=== PATIENT | male | born 1970 | race Caucasian/White ===

== ENCOUNTER 2021-06-19 09:23 | Outpatient (CLI) | payer BC ==
[~2021-06-19] VITALS: Ht 180.3 cm; Wt 155.5 kg
[2021-06-19] MEDS ORDERED: FURO-125 PO (12:55)
[2021-06-19] MEDS ORDERED: LISI20TA26 PO (12:55)
[2021-06-19] MEDS ORDERED: CLN.1T PO (12:55)
[2021-06-19] MEDS ORDERED: HYDR12.56 PO (12:57)
[2021-06-19] MEDS ORDERED: ZOLP5TAB PO (12:57)
== END 2021-06-19 16:01 | disposition home or self-care (01) ==
LOC: PREOP 09:23
PROVIDERS: ATTEND Surgery
DX: Z01.818 Encounter for other preprocedural examination (principal)

== ENCOUNTER 2021-06-25 08:10 | Day surgery (SDC) | payer BC ==
[~2021-06-25] VITALS: Ht 180.3 cm; Wt 155.5 kg
[2021-06-25] VITALS (12 sets, daily range): BP systolic 11–119; BP diastolic 49–73
[~2021-06-25 08:10] MED LIST: CLN.1T PO; FURO-125 PO; HYDR12.56 PO; LISI20TA26 PO; ZOLP5TAB PO
--- NOTE | 2021-06-25 08:33 | Progress Note-Pre Operative ---
Pre-Operative Progress Note H&P Reviewed The H&P was reviewed, patient examined and no changes noted. Date Seen by Provider: Jun 25, 2021 Time Seen by Provider: 08:30 Date H&P Reviewed: Jun 25, 2021 Time H&P Reviewed: 08:25 Pre-Operative Diagnosis: Symptomatic chronic calculous cholecystitis AGGIE MORA APRN Jun 25, 2021 08:33
[2021-06-25] MEDS ORDERED: HYDR-3817 PO (08:35)
--- NOTE | 2021-06-25 08:35 | Discharge Inst-Surgical ---
D/C Lap Instructions-KIDO Reconcile Patient Problems Problems Reviewed?: Yes New, Converted, or Re-Newed RX: RX on Chart Follow Up Appt in 2 weeks Activity as tolerated No driving for 24 hours No driving while on pain medications Incentive Spirometry use every 2 hours while awake Regular Diet Symptoms to Report: Fever over 101 degree F, Nausea/Vomiting Infection Signs and Symptoms to report: Increased redness, Foul odor of wound, Increased drainage Bathing instructions: May shower Operative Area Clean/Dry; Keep incision clean/dry If any problems/questions: Contact your physician or go to Emergency Room AGGIE MORA APRN Jun 25, 2021 08:35
[2021-06-25] MEDS ORDERED: ACETAMINOPHEN 325 MG TABLET PO PRN (08:45)
[2021-06-25] MEDS ORDERED: HYDROcodone/APAP 5 MG/325 MG (LORTAB) TAB PO ONE (08:45)
[2021-06-25] MEDS ORDERED: ONDANSETRON 4 MG/2 ML (SDV) Z0FRAN IVP PRN ×2 (08:45→13:15)
[2021-06-25] MEDS ORDERED: morphine INJ 10 MG/ML 1ML (SYR OR VIAL) IVP PRN (08:45)
[2021-06-25] MEDS ORDERED: CLINDAMYCIN 600 MG/50 ML IVPB 50 ML IV ONE (09:00)
[2021-06-25] MEDS ORDERED: CLINDAMYCIN 900 MG/50 ML IVPB 50 ML IV ONE (09:00)
[2021-06-25] MEDS: LACTATED RINGERS 1,000 ML IV PRN ×3 (09:02→12:39)
[2021-06-25] MEDS ORDERED: LIDOCAINE/EPI 1%-1:100,000 (XYLOCAINE) 20ML ONE (09:14)
[2021-06-25] MEDS ORDERED: MIDAZOLAM 2 MG/2 ML (VERSED) VIAL ONE (09:16)
[2021-06-25] MEDS ORDERED: ONDANSETRON 4 MG/2 ML (SDV) Z0FRAN ONE (09:16)
[2021-06-25] MEDS ORDERED: ROCURONIUM 10 MG/ML 5 ML SYRINGE IV ONE ×2 (09:16→11:47)
[2021-06-25] MEDS ORDERED: LIDOCAINE PF 2% 5 ML (XYLOCAINE) VIAL ONE (09:16)
[2021-06-25] MEDS ORDERED: fentaNYL INJ 100 MCG/2 ML AMP ONE ×2 (09:16)
[2021-06-25] MEDS ORDERED: SEVOFLURANE (ULTANE) 15 ML INHAL SOLN ONE ×2 (09:16→12:41)
[2021-06-25] MEDS ORDERED: proPOfol 200 MG/20 ML (DIPRIVAN) VIAL IV ONE (09:16)
[2021-06-25 09:18] LABS: BASOPHILS % (AUTO) 0 % (0-10); EOSINOPHILS % (AUTO) 0 % (0-10); HEMATOCRIT 44 % (40-54); HEMOGLOBIN 14.5 g/dL (13.3-17.7); LYMPHOCYTES # (AUTO) 1.2 10^3/uL (1.0-4.0); LYMPHOCYTES % (AUTO) 24 % (12-44); MEAN CORPUSCULAR HEMOGLOBIN 29 pg (25-34); MEAN CORPUSCULAR HGB CONC 33 g/dL (32-36); MEAN CORPUSCULAR VOLUME 88 fL (80-99); MEAN PLATELET VOLUME 8.8 fL (9.0-12.2); MONOCYTES # (AUTO) 0.7 10^3/uL (0.0-1.0); MONOCYTES % (AUTO) 14 % (0-12); NEUTROPHILS % (AUTO) 59 % (42-75); PLATELET COUNT 468 10^3/uL (130-400); WHITE BLOOD COUNT 5.1 10^3/uL (4.3-11.0)
[2021-06-25] MEDS ORDERED: fentaNYL INJ 100 MCG/2 ML AMP IVP ONE (09:30)
[2021-06-25] MEDS ORDERED: NEOSTIGMINE 3 MG/3 ML VIAL ONE (11:04)
[2021-06-25] MEDS ORDERED: GLYCOPYRROLATE 0.2 MG/ML (ROBINUL) 2 ML VIAL ONE (11:04)
[2021-06-25] MEDS ORDERED: PHENYLEPHRINE 100 MCG/ML 10 ML (ANESTHESIA) SYR ONE (11:06)
[2021-06-25] MEDS ORDERED: HYDROmorphone 2 MG/ML VIAL (DILAUDID) ONE (12:34)
--- NOTE | 2021-06-25 13:06 | Anesthesia-General Post-Op ---
General Patient Condition Mental Status/LOC: Same as Preop Cardiovascular: Satisfactory Nausea/Vomiting: Absent Respiratory: Satisfactory Pain: Controlled Complications: Absent Post Op Complications Complications None Follow Up Care/Instructions Patient Instructions None needed. Anesthesia/Patient Condition Patient Condition Patient is doing well, no complaints, stable vital signs, no apparent adverse anesthesia problems. GONZALO IGNACIO DO Jun 25, 2021 13:06
[2021-06-25] MEDS ORDERED: HYDROmorphone 2 MG/ML VIAL (DILAUDID) IV ONE (13:15)
[2021-06-25] MEDS ORDERED: morphine INJ 10 MG/ML 1ML (SYR OR VIAL) IVP ONE (13:15)
--- NOTE | 2021-06-25 14:06 | Progress Note-Post Operative ---
Post-Operative Progess Note Surgeon (s)/Travel Accommodations Rater (s) Surgeon DENEEN PATHAK MD Travel Accommodations Rater: rani lr Pre-Operative Diagnosis Symptomatic chronic calculous cholecystitis Post-Operative Diagnosis acute on chronic calculous cholecystitis, reducible umbilical hernia. Procedure & Operative Findings Date of Procedure 06/25/21 Procedure Performed/Findings laparoscopic cholecystectomy, open primary umbilical hernia repair. Anesthesia Type get Estimated Blood Loss Estimated blood loss (mL): minimal Specimens/Packing Specimens Removed gallbladder DENEEN PATHAK MD Jun 25, 2021 14:06
[2021-06-25] MEDS ORDERED: HYDROcodone/APAP 5 MG/325 MG (LORTAB) TAB ONE (15:00)
--- NOTE | 2021-06-25 20:14 | OPERATIVE REPORT ---
DATE OF SERVICE: 06/25/2021 ATTENDING PRIMARY CARE PHYSICIAN: Dr. Kushal Messer. PREOPERATIVE DIAGNOSIS: Symptomatic chronic calculous cholecystitis and reducible umbilical hernia. POSTOPERATIVE DIAGNOSES: 1. Acute on chronic calculous cholecystitis. 2. Reducible umbilical hernia. PROCEDURE: Laparoscopic cholecystectomy, open repair, umbilical hernia. SURGEON: Shivam Poole MD. ANTIQUE FINISHER: Gopal Shetty APRN. ANESTHESIA: General endotracheal. ESTIMATED BLOOD LOSS: Minimal. FINDINGS: 1. Acute on chronic calculous cholecystitis. 2. Reducible umbilical hernia. DISPOSITION: The patient tolerated the procedure well. INDICATIONS: The patient is a 51-year-old male who has had approximately a 9-month history of pain in the epigastric as well as a right upper abdominal quadrant with associated nausea and vomiting. He reports that this was initially mild; however, in the past 3 months, he has had three significant episodes and this has progressed to the point where when he takes most solids and liquids by mouth, he does have nausea and will vomit. A CT scan was performed, which did show inflammation of the gallbladder as well as gallstones. He has also had periumbilical pain and swelling for the past few years. DESCRIPTION OF PROCEDURE: The patient was brought to the operating room, laid supine on the table. After adequate IV pain and sedative medications and general endotracheal intubation, the abdomen was prepped and draped in standard surgical fashion. A 0.5% Marcaine with epinephrine was then used to anesthetize overlying skin in the left upper abdominal quadrant and a transverse skin incision made using a 15 blade. An 0 silk suture was applied to the medial aspect incision for retraction and a Veress needle inserted with a low opening pressure of 0 mmHg. The abdomen was then insufflated to 15 mmHg pressure. The Veress needle removed and a 5 mm XL trocar placed followed by a 5 mm 45-degree angle laparoscope visualizing the peritoneal cavity. A 4-quadrant abdominal exploration was performed. There was liver steatosis identified as well as an inflamed gallbladder with omental adhesions. There was also a reducible umbilical hernia identified. This was approximately 1.5 cm in size. Under direct visualization, we then proceeded to place a supraumbilical 10 mm port through the umbilical hernia site after the skin and peritoneal lining were anesthetized using 0.5% Marcaine with epinephrine and a transverse skin incision made using a 15 blade. In a similar manner, two right upper abdominal quadrant 5 mm ports were placed. The fundus of the gallbladder was then retracted anteriorly and superiorly and the omental adhesions were then taken down using blunt dissection as well as electrocautery on the hook instrument. The hepatoduodenal ligament was then opened and similarly dissected using a hook instrument as well as a [place] dissector. The entire critical view of safety was identified including the triangle of Calot as well as the cystic duct and artery as only two structures going into the gallbladder as well as the cystic plate behind the proximal gallbladder. A timeout was then taken and the cystic duct and artery were then clipped proximally and distally and cut with EndoShears. The gallbladder was then dissected off the liver bed using cautery with visualization of good hemostasis as well as no leaking ducts of Luschka. The gallbladder was removed through the 10 mm port site using an EndoCatch bag. We then proceeded with repair of the umbilical hernia in an open manner. The hernia sac was excised with electrocautery and the fascia was then reapproximated using 0 Prolene running suture anteriorly while the abdominal wall was still under pneumo insufflation. Good hemostasis was observed. The abdomen was desufflated and remaining ports removed. All skin incisions were closed using 4-0 Monocryl running subcuticular sutures. Wounds were then cleaned and covered with Dermabond. The patient tolerated the procedure well. We will start IV normal pain medication as well as a clear liquid diet. Once he is tolerating clears, has good pain control with oral pain medications, ambulating well, we will discharge him home. He will be instructed to do no heavy lifting or exertion for the next two weeks strictly and weeks two through six, he may slowly increase activity; however, still refrain from heavy lifting and exertion until six weeks from the surgery. Job ID: [id number] DocumentID: [id number] Dictated Date: 06/25/2021 12:43:38 Career Education Teacher Date: 06/25/2021 20:14:00 Dictated By: MD ALDO ROJAS
== END 2021-06-25 15:05 | disposition home or self-care (01) ==
LOC: SDC 08:10
PROVIDERS: ATTEND Surgery
DX: K80.12 Calculus of gallbladder with acute and chronic cholecystitis without obstruction (principal); K42.9 Umbilical hernia without obstruction or gangrene; I10 Essential (primary) hypertension; K21.9 Gastro-esophageal reflux disease without esophagitis; E66.01 Morbid (severe) obesity due to excess calories; Z68.42 Body mass index [BMI] 45.0-49.9, adult; Z79.899 Other long term (current) drug therapy
CPT/HCPCS: 36415; 85025; 87081; 88304